=== PATIENT | male | born 1975 | race Caucasian/White ===

== ENCOUNTER 2020-10-31 11:11 | Emergency (ER) | payer OTHER, BC ==
[2020-10-31 11:53] VITALS: BP 133/87; PULSE 89
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
== END 2020-10-31 12:37 | disposition home or self-care (01) ==
LOC: JP.ED 11:11
DX: S16.1XXA Strain of muscle, fascia and tendon at neck level, initial encounter (principal); Z72.0 Tobacco use; V53.5XXA Driver of pick-up truck or van injured in collision with car, pick-up truck or van in traffic accident, initial encounter
CPT/HCPCS: 99283